=== PATIENT | female | born 1995 | race Hispanic/Latino ===

== ENCOUNTER 2019-01-03 20:33 | Emergency (ER) | payer MEDICAID ==
[~2019-01-03] VITALS: Ht 147.3 cm; Wt 72.7 kg
[~2019-01-03 20:33] MED LIST: ACCUPRIL5 MG PO; AMOXICILLIN500 MG PO; CEPHALEXIN500 MG PO; FERR SULFATE325 MG PO; IBUPROFEN600 MG PO; NAPROSYN500 MG PO; NO MEDS; PRENATAL1 TA1 PO
[2019-01-03 21:02] LABS: HEMOGLOBIN 12.9 g/dl (12.0-16.0); IMMATURE GRANULOCYTES 0.1 % (0.0-5.0); MEAN CORPUSCULAR HGB 28.3 pG CALC (26.0-32.0); MEAN CORPUSCULAR HGB CONC 33.1 g/L CALC (32.0-36.0); NEUT# 3.44 thou/uL (2.00-7.15); RED BLOOD COUNT 4.56 mill/uL (4.20-5.60); RED CELL DISTRI WIDTH 11.9 % (11.5-15.5)
[2019-01-03 21:11] LABS: MEAN CELL VOLUME 85.5 fL CALC (80.0-100.0)
[2019-01-03 21:24] LABS: ALBUMIN 4.5 g/dL (3.2-5.0); ALKALINE PHOSPHATASE 49 u/l (38-126); ANION GAP 16 (6-22 (CALC)); BUN 9 mg/dL (7-17); BUN/CREATININE RATIO 12 (12-20 (CALC)); CARBON DIOXIDE 23 mmol/l (22-30); CHLORIDE 106 mmol/l (95-108); CREATININE 0.8 mg/dL (0.5-1.0); ETHYL ALCOHOL 0 mg/dl (0-30); GFR > 60 ML/MIN (>=60 (CALC)); GFR FOR AFR.AMER. > 60 ML/MIN (>=60 (CALC)); POTASSIUM 3.7 mmol/l (3.5-5.1); SGOT/AST 22 u/l (14-36); SODIUM 141 mmol/l (137-146); TOTAL PROTEIN 7.8 g/dL (6.3-8.2)
[2019-01-03 21:32] LABS: BILIRUBIN, TOTAL 0.2 mg/dL (0.0-1.4)
[2019-01-03 21:36] LABS: MYOGLOBIN 25 ng/mL (0 - 62)
[2019-01-03 22:30] LABS: URINE BILIRUBIN - DIPSTICK NEGATIVE (NEGATIVE); URINE BLOOD DIPSTICK LARGE (NEGATIVE); URINE COLOR YELLOW; URINE GLUCOSE - DIPSTICK NEGATIVE (NEGATIVE); URINE KETONE NEGATIVE (NEGATIVE); URINE LEUK ESTERASE NEGATIVE (NEGATIVE); URINE NITRITE - DIPSTICK NEGATIVE (Negative); URINE PH 5.5 (4.5-8.0); URINE PROTEIN - DIPSTICK NEGATIVE (NEG-TRACE); URINE UROBILINOGEN - DIPSTICK 0.2 E.U./dL (0.2)
[2019-01-03 22:40] LABS: BARBITURATES NEGATIVE (NEGATIVE); COCAINE NEGATIVE (NEGATIVE); METHADONE NEGATIVE (NEGATIVE); OXCYCODONE NEGATIVE (NEGATIVE); TETRAHYDROCANNABIONOL NEGATIVE (NEGATIVE); TRICYLIC ANTIDEPRESSANTS NEGATIVE (NEGATIVE)
[2019-01-03 22:44] LABS: URINE RBC TNTC RBC/hpf (0-5)
[2019-01-03 22:45] LABS: URINE SQUAMOUS EPITHELIAL CELL FEW EPI/hpf (0-FEW)
[2019-01-03 23:15] VITALS: BP 132/63
== END 2019-01-03 23:15 | disposition home or self-care (01) ==
LOC: ED 20:33
PROVIDERS: Emergency Medicine
DX: F41.9 Anxiety disorder, unspecified (principal); G83.9 Paralytic syndrome, unspecified
CPT/HCPCS: J2060

== ENCOUNTER 2022-02-27 21:06 | Emergency (ER) | payer OTHER, MEDICAID ==
[~2022-02-27] VITALS: Ht 147.3 cm; Wt 59.5 kg
[2022-02-27] MEDS ORDERED: NAPROXEN500 MG PO (23:38)
[2022-02-27] MEDS ORDERED: GENTAMICIN SULF5 ML OS (23:38)
[2022-02-27 23:42] VITALS: BP 124/85
== END 2022-02-27 23:58 | disposition home or self-care (01) | DRG 552 ==
LOC: ED 21:06
DX: S13.9XXA Sprain of joints and ligaments of unspecified parts of neck, initial encounter (principal); H57.12 Ocular pain, left eye; V49.50XA Passenger injured in collision with unspecified motor vehicles in traffic accident, initial encounter